=== PATIENT | female | born 1930 | race Asian ===

== ENCOUNTER → 2016-09-02 | Outpatient (CLI) | payer MEDICARE, OTHER ==
[~2016-09-02] MED LIST: ACETAMINOPHEN325 MG PO; ACETAMINOPHEN650 M1 PO; ACTOS PO; ARTHROTEC 501 TAB.EC PO; ATACAND HCT 16/1 TAB PO; AUGMENTIN PO; BAYER ASPIRIN325 M1 PO; CEFTRIAXON1 G/PIGGYB IV; COLCHICINE PO; DARVOCET-N 1001 TAB PO; EVISTA60 MG PO; FISH OIL 1,0001 CAP PO; FISH OIL 1,001000 M1 PO; GLYBURIDE PO; GLYBURIDE2.5 MG PO; LASIX20 MG PO; LEVAQUIN PO; LISINOPRIL10 MG PO; LYRICA PO; LYRICA75 MG PO; MELATONIN3 M4 PO; METFORMIN HCL500 M1 PO; METFORMIN PO; METOPROLOL TART25 MG PO; OMEPRAZOLE20 M2 PO; PRILOSEC PO; REFRESH OPTIVE1 EACH OP; SIMVASTATIN20 MG PO; TIMOPTIC 0.5% OP5 M1 OD; ULTRAM PO; VIBRAMYCIN100 M1 PO; VITAMIN D-32000 UNI1 PO; ZOCOR PO; ZOFRAN PO; ZYLOPRIM PO; ZYLOPRIM100 MG PO
--- NOTE | ~2016-09-02 | CR63 ---
[facility] A Service of [facility] RADIOLOGY TEXT RESULTS PATIENT: SRINIVASAN VALLADARES LOCATION: [facility] : 30 UNIT #: [id number] AGE: [address]: Brenda Cespedes MD SEX: F ORDER DR: [id number] [facility] [address] [place], [place] [address] [id number] O MR#: [id number] Acc #: [id number] NAME: SRINIVASAN VALLADARES : 1930 SEX: F STUDY DATE/TIME: 09/02/2016 10:05 UNIT: [facility] ROOM: STUDY DESCRIPTION: CR Chest 2 View Attending Physician: Brenda Cespedes M.D. Referring Physician: Brenda Cespedes M.D. Ordering Physician: Brenda Cespedes M.D. Primary Care Physician: Brenda Cespedes M.D. MEDICAL IMAGING REPORT This report is preliminary unless electronic signature is present EXAM Chest, 09/02/2016, [facility]. HISTORY 86-year-old woman, short of air, possible fluid in the lungs. Symptoms noted today. History of diabetes. COMPARISON Chest, 02/05/2015. FINDINGS Two-view chest demonstrates mild cardiac enlargement and aortic ectasia. Lungs are clear with no infiltrates and no congestion or interstitial edema. Minimal blunting of costophrenic angles, although I do not suspect effusion. Old right rib trauma noted. Apical pleural thickening noted right apex. IMPRESSION No evidence for cardiac decompensation. 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 Old right rib trauma. Single mid thoracic vertebral fracture with anterior wedging. No acute chest finding. Dictated by... Fercho Caruso M.D. THIS IS AN ELECTRONICALLY VERIFIED REPORT Fercho Caruso M.D. at 09/02/2016 1:00 PM NEFTALI/deuce TD: 09/02/2016 11:45 [facility] A Service of [facility] RADIOLOGY TEXT RESULTS PATIENT: SRINIVASAN VALLADARES LOCATION: [facility] #: [id number] : 30 UNIT #: [id number] AGE: [address]: Brenda Cespedes MD SEX: F ORDER DR: JOB #: [id number] MEDICAL IMAGING REPORT Page 1 of 1 COPY
--- NOTE | ~2016-09-02 | BD1 ---
[facility] A Service of [facility] RADIOLOGY TEXT RESULTS PATIENT: SRINIVASAN VALLADARES LOCATION: [facility] : 30 UNIT #: [id number] AGE: [address]: Brenda Cespedes MD SEX: F ORDER DR: [id number] [facility] [address] [place], [place] [address] [id number] O MR#: [id number] Acc #: [id number] NAME: SRINIVASAN VALLADARES : 1930 SEX: F STUDY DATE/TIME: 09/02/2016 9:32 UNIT: [facility] ROOM: STUDY DESCRIPTION: BD Dexa Bone Dens 1+ Site Attending Physician: Brenda Cespedes M.D. Referring Physician: Brenda Cespedes M.D. Ordering Physician: Brenda Cespedes M.D. Primary Care Physician: Brenda Cespedes M.D. MEDICAL IMAGING REPORT This report is preliminary unless electronic signature is present EXAM Bone density spine/hip, 09/02/2016 HISTORY Osteo screening. Diabetes, gout medicine, blood pressure, aspirin, vitamin D. Postmenopausal. Nonsmoker. Takes calcium supplement. FINDINGS Bone density scanning performed in upper four lumbar vertebral segments and left proximal femur in 98 pound postmenopausal female. Patient 10-[id number]-ryo. Comparison 07/29/2010. Bone mineral density L1-L4 0.835 g/cm2 for T-score of 1.9 standard deviation below mean for reference population normal young individuals. Comparison to 2010 there has been a statistically significant 10% increase in bone mineral density in this region. In the proximal left femur, total bone mineral density is 0.723 g/cm2 for T-score 1.8 standard deviation below mean for reference population normal young individuals. In the left femoral neck specifically, the bone mineral density is 0.477 g/cm2 for T-score 3.4 standard deviation below mean for reference population normal young individuals. Using total bone mineral density as trending value in this region, compared to 2010 there has been a statistically significant 12.5% increase in left femoral bone mineral density. IMPRESSION 1. 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 Patient felt to be at significantly increased risk for fracture. Treatment options may be considered. Continued surveillance is recommended. [facility] A Service of [facility] RADIOLOGY TEXT RESULTS PATIENT: SRINIVASAN VALLADARES LOCATION: [facility] : 30 UNIT #: [id number] AGE: [address]: Brenda Cespedes MD SEX: F ORDER DR: 2. Statistically significant increases in total bone mineral density upper four lumbar vertebral segments overall and proximal left femur compared to July 2010. See complete trending data in body of report above. Dictated by... Dick Vargas M.D. THIS IS AN ELECTRONICALLY VERIFIED REPORT Dick Vargas M.D. at 09/06/2016 5:16 PM Ric TD: 09/05/2016 11:06 JOB #: [id number] MEDICAL IMAGING REPORT Page 1 of 1 COPY
== END | disposition home or self-care (01) ==
LOC: CWCC 09:09 → CRAD 09:09 → CWCC 10:30
DX: Z13.820 Encounter for screening for osteoporosis (principal); M81.0 Age-related osteoporosis without current pathological fracture; R09.89 Other specified symptoms and signs involving the circulatory and respiratory systems; I77.819 Aortic ectasia, unspecified site; I51.7 Cardiomegaly; S22.009A Unspecified fracture of unspecified thoracic vertebra, initial encounter for closed fracture
CPT/HCPCS: 71020; 77080